=== PATIENT | male | born 1950 | race Caucasian/White ===

== ENCOUNTER 2020-10-26 01:36 | Outpatient (CLI) | payer MEDICARE, BC, SELFPAY ==
[2020-10-26 08:19] LABS: HCT 45.3 % (40.0-50.0); HGB 14.9 g/dL (13.5-17.5); MCH 32.3 pg (27.0-33.0); MCHC 32.9 % (32.0-36.0); MCV 98.3 fL (80-95); MPV 9.4 fL (8.0-11.0); Platelet Count 237 10^3/uL (130-400); RBC 4.61 10^6/uL (4.36-5.78); RDW 11.8 % (11.8-14.1); RDW-SD 42.5 fL; WBC 6.28 10^3/uL (4.4-10.8)
[2020-10-26 09:50] LABS: ALT 35 U/L (16-63); AST 17 U/L (15-37); Albumin 3.6 g/dL (3.4-5.0); Alkaline Phosphatase 81 U/L (46-116); BUN 20 mg/dL (7-18); Bilirubin, Direct 0.09 mg/dL (0.00-0.20); Bilirubin, Total 0.4 mg/dL (0.2-1.0); CREATININE 0.75 mg/dL (0.70-1.30); Calcium 8.6 mg/dL (8.5-10.1); Chloride 104 mmol/L (98-107); Glucose 103 mg/dL (74-106); Potassium 4.5 mmol/L (3.5-5.1); Sodium 141 mmol/L (136-145); Total Protein 6.6 g/dL (6.4-8.2)
[2020-10-26 23:09] LABS: PSA, Screening 2.8 ng/mL (0.0-4.5)
[2020-11-06 11:30] LABS: Misc Referral (UVM) See Comments
== END 2020-10-26 01:56 ==
PROVIDERS: PCP Family Medicine; Visit Provider Family Medicine
DX: E29.1 Testicular hypofunction (principal); N40.0 Benign prostatic hyperplasia without lower urinary tract symptoms; Z12.5 Encounter for screening for malignant neoplasm of prostate
CPT/HCPCS: 36415; 80053; 80076; 84153; 84403; 85027

== ENCOUNTER 2021-02-27 15:16 | Outpatient (CLI) | payer MEDICARE, BC, SELFPAY ==
--- NOTE | 2021-02-27 16:15 | DI.RAD_ITS ---
EXAM: XR ABDOMEN FLAT UPRIGHT CLINICAL HISTORY: constipation k59.00. TECHNIQUE: 2D digital imaging was performed. COMPARISON: No exams were available for comparison FINDINGS: There is abundant fecal material noted throughout the colon. The colon is not overly distended. The re is no obvious fecal rectal impaction. A 2 calcifications are noted over the right kidney which are probably renal calculi. These both amanda ure 3 millimeters. There are no obvious calculi seen along the course of the ureters. Vascular calc ification is noted in left side of the pelvis. Chronic degenerative disc disease in the lumbar spine noted. IMPRESSION: Moderate increased amount of fecal material throughout the colon. No fecal rectal impaction evident. DATA REPOSITORY: RADIATION DOSE DELIVERED:
--- NOTE | 2021-02-27 16:55 | DI.VRAD_ITS ---
PROCEDURE INFORMATION: Exam: XR Abdomen Exam date and time: 02/27/2021 4:47 PM Age: 70 years old Clinical indication: Other: Constipation TECHNIQUE: Imaging protocol: XR of the abdomen. Views: 2 Views. Upright and supine views. COMPARISON: No relevant prior studies available. FINDINGS: Gastrointestinal tract: Normal stool retention. No definite evidence of constipation. Intraperitoneal space: Normal. No free air. Organs: Several small calcifications overlying the right renal shadow which could indicate stones. Bones/joints: Mild dextroscoliosis and degenerative changes in the spine. IMPRESSION: Normal stool retention. No definite evidence of constipation. Mild dextroscoliosis and degenerative changes in the spine. Several small calcifications overlying the right renal shadow which could indicate stones. Dictated and Authenticated by: Yusra Bashir MD. Ordering:DAYANA Childress MD
== END 2021-02-27 15:36 ==
PROVIDERS: PCP Family Medicine; Visit Provider Physician Assistant
DX: K59.00 Constipation, unspecified (principal)
CPT/HCPCS: 74019

== ENCOUNTER 2021-10-17 02:33 | Outpatient (CLI) | payer MEDICARE, BC, SELFPAY ==
[2021-10-17 17:25] LABS: Calculated LDL 145 mg/dL (<100); Cholesterol 236 mg/dL (<200); HDL Cholesterol 65 mg/dL (40-60); Triglyceride 133 mg/dL (<150)
[2021-10-17 23:28] LABS: PSA, Screening 2.9 ng/mL (0.0-4.5)
[2021-10-18 09:44] LABS: Hepatitis C Ab w Rflx HCV PCR Negative (Negative)
== END 2021-10-17 02:34 | disposition home or self-care (01) ==
LOC: LBO 02:33
PROVIDERS: PCP Family Medicine; Visit Provider Family Medicine
DX: Z00.00 Encounter for general adult medical examination without abnormal findings (principal); Z80.42 Family history of malignant neoplasm of prostate; Z12.5 Encounter for screening for malignant neoplasm of prostate; Z11.59 Encounter for screening for other viral diseases
CPT/HCPCS: 36415; 80061; 84153; 86803

== ENCOUNTER 2022-10-10 03:57 | Outpatient (CLI) | payer MEDICARE, BC, SELFPAY ==
[2022-10-10 12:15] LABS: Abs Immature Grans 0.01 10^3/uL (0.0-0.06); Absolute Basophil Count 0.04 10^3/uL (0.0-0.2); Absolute Eosinophil Count 0.11 10^3/uL (0.0-0.7); Absolute Lymphocyte Count 2.25 10^3/uL (1.2-3.4); Absolute Monocyte Count 0.62 10^3/uL (0.1-0.8); Absolute Neutrophil Count 3.03 10^3/uL (1.2-6.7); Basophils % 0.7; Eosinophils % 1.8; HCT 45.4 % (40.0-50.0); HGB 14.9 g/dL (13.5-17.5); Immature Grans % 0.2; Lymphocytes % 37.1; MCH 31.9 pg (27.0-33.0); MCHC 32.8 % (32.0-36.0); MCV 97 fL (80-95); MPV 9.7 fL (8.0-11.0); Monocytes % 10.2; Platelet Count 254 10^3/uL (130-400); RBC 4.67 10^6/uL (4.36-5.78); RDW 12.1 % (11.8-14.1); RDW-SD 43.8 fL; WBC 6.06 10^3/uL (4.4-10.8)
[2022-10-14 09:20] LABS: PSA, Screening 4.5 ng/mL (<=6.5)
[2022-10-15 16:14] LABS: Testosterone, Total 570 ng/dL (240-950)
== END 2022-10-10 03:58 | disposition home or self-care (01) ==
LOC: LBO 03:57
PROVIDERS: PCP Family Medicine; Visit Provider Family Medicine
DX: E29.1 Testicular hypofunction (principal); Z12.5 Encounter for screening for malignant neoplasm of prostate
CPT/HCPCS: 36415; 84153; 84403; 85025

== ENCOUNTER 2022-11-10 09:35 | Emergency (ER) | payer MEDICARE, BC, SELFPAY ==
[2022-11-10 09:40] VITALS: BP 110/71; PULSE 105; RESP 16; TEMP 38.3; O2SAT 96
--- NOTE | 2022-11-10 09:52 | W.ED.GENAD ---
Discharge Plan Disposition Patient Disposition: Home Condition: Stable Discharge Details Clinical Impression: COVID-19 Primary Care Provider: Janette Neville ED Provider: Francisco Jacobo Home Meds and New Rx's Prescriptions: Continued testosterone/dennis cream See Rx Instructions .ROUTE .COMPLEX Qty: 360 1RF Dose Instruction: 0.25 tsp apply to non hairy skin twice daily ; Rx Instructions: 0.25 tsp apply to non hairy skin twice daily Discharge Instructions Instructions: COVID-19 (Coronavirus Disease 2019) (ED) Additional Instructions: Please drink plenty of fluids and allow for plenty of rest. Please take acetaminophen (tylenol) - 650mg every 6 hours by mouth as needed for fever. Please contact your primary care physician to arrange follow-up. Return to the ER immediately for any worsening or new concerning symptoms. Referrals: Janette Neville MD [Primary Care Provider] - Medical Decision Making 72-year-old male with history of hyperlipidemia and obstructive sleep apnea, here with respiratory symptoms including sore throat cough and associated fatigue with fever over the past 3 days. Patient tested positive for COVID at home. Patient is saturating well and in no respiratory distress. He has no shortness of breath or chest pain. Patient requesting treatment with paxlovid. Plan to initiate treatment course here and will provide doses to continue full course. Patient was encouraged to drink plenty of fluid and allow for plenty of rest. Usual customary discharge instructions were reviewed. HPI General Mode of arrival: ambulatory. Date/Time Provider Initiated Documentation: 11/10/22 09:51. Limitations to Documentation: no limitations. Information obtained by: patient. HPI Narrative: 72-year-old male here with chief complaint of COVID-positive. Patient notes he started to have a scratchy throat 3 days ago and then developed cough fatigue and fever. Symptoms are moderate. No modifiers. He denies associated shortness of breath. No chest pain. Patient tested for COVID and was positive at home. Related Data Home Medications Medication Instructions Recorded Confirmed testosterone/dennis See Rx Instructions .Route 05/03/22 11/10/22 .COMPLEX #360 grams Previous Rx's Medication Instructions Recorded testosterone/dennis See Rx Instructions .Route 05/03/22 .COMPLEX #360 grams Allergies Allergy/AdvReac Type Severity Reaction Status Date / Time doxycycline Allergy Unknown HIVES Verified 11/10/22 09:49 codeine Allergy Verified 11/10/22 09:49 General Stated Complaint: RespSymp BRENDON: 3 Review of Systems All systems reviewed & are unremarkable except as noted in HPI and below Constitutional Constitutional: Reports fever(s) Cardiovascular Cardiovascular: Denies chest pain and Denies dyspnea Respiratory Respiratory: Denies dyspnea PFSH All Active Problems Hypogonadism (Acute) managed with topical testosterone Obstructive sleep apnea hypopnea, severe (Acute) managed with bipap previously, now with a dental appliance. 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, right eyelid since childhood Surgical History Status post tonsillectomy Family History Mother Personal history of malignant neoplasm lung Asthma Father , age 88 Personal history of malignant neoplasm skin Dementia Brother Substance abuse Essential hypertension Depression Grandfather Depression Son Asthma Social History Smoking/Tobacco Use Status: Never Second Hand Exposure: No Smoking risk assessment performed?: Yes Alcohol Intake: never Drug use: Never Substance use type: does not use Caregiver/Support person: No Household members: none Housing: house Number of Children: 3 number of grandchildren: 6 Communication Needs: None Education Level: college Details: Economics Do you need help understanding health information?: Rarely current occupation: retired, self employed in construction Pets and animals: No Sexually active: Yes Do you think of yourself as: straight/heterosexual Current gender identity: male What is your relationship status?: How often do you talk on the phone with friends or family?: once per week How often do you get together with friends or relatives?: once per week How often do you attend moravian or methodist services?: 1-3 times per year Do you belong to any clubs or organized social groups?: yes Panel score (0-1 are the most socially isolated patients): 1 What type of physical activity do you participate in: walking and weight lifting Duration: 15-30 minutes/day Frequency: 1-2 times per week Leonie/Scientologist: Caodaism Special leonie needs: No Seatbelt use: always Helmet use: Yes Helmet use: sometimes Drive intox or ride w/intox courtesy bus driver: No Do you feel safe at home: Yes Do you feel safe in your relationship?: Yes Victim of physical abuse: No Victim of emotional abuse: No Victim of sexual abuse: No Would you like helpful sources: No Additional Social history: Enjoys playing golf, skiing, guitar, reading, sports on TV. Exam Const General: cooperative and no acute distress HENMT Mouth: moist mucous membranes Eyes Conjunctivae: normal conjunctivae Sclera: normal sclerae Neck Neck: trachea midline Resp Auscultation: clear to auscultation bilaterally, no rales, no rhonchi and no wheezes Cardio Rate: regular rate and not tachycardic Rhythm: regular rhythm GI Palpation: soft, not firm, no guarding, not rigid and nontender Neuro General: patient alert, patient awake, patient oriented x3 and tone normal Course Vital Signs Vital signs: Vital Signs Temperature 38.3 C H 11/10/22 09:40 Pulse 105 H 11/10/22 09:40 Respiratory Rate 16 11/10/22 09:40 Blood Pressure 110/71 11/10/22 09:40 Pulse Oximetry 96 11/10/22 09:40 Temperature 38.3 C H 11/10/22 09:40 Temperature Source Skin 11/10/22 09:40 Pulse 105 H 11/10/22 09:40 Respiratory Rate 16 11/10/22 09:40 Respiratory Effort 11/10/22 09:51 Respiratory Depth Normal 11/10/22 09:51 Blood Pressure 110/71 11/10/22 09:40 Blood Pressure Position Sitting 11/10/22 09:40 Pulse Oximetry 96 11/10/22 09:40 Oxygen Delivery Method Room Air 11/10/22 09:40 Oxygen Flow Rate 0 11/10/22 09:40 Pain Level 5 11/10/22 09:40 Comment 11/10/22 09:40
[2022-11-10 10:09] VITALS: TEMP 38.3
[2022-11-10] MEDS: Acetaminophen 325 MG TAB 650 MG PO (10:09)
[2022-11-10 10:28] VITALS: PULSE 103; RESP 16; TEMP 38.6; O2SAT 96
== END 2022-11-10 10:40 | disposition home or self-care (01) ==
PROVIDERS: Emergency Provider Student in an Organized Health Care Education/Training Program; PCP Family Medicine
DX: U07.1 COVID-19 (principal)
CPT/HCPCS: 80053; 87040; 99283; 85025

== ENCOUNTER 2023-10-22 04:22 | Outpatient (CLI) | payer MEDICARE, BC, SELFPAY ==
[2023-10-22 08:48] LABS: Abs Immature Grans 0.01 10^3/uL (0.0-0.06); Absolute Basophil Count 0.04 10^3/uL (0.0-0.2); Absolute Eosinophil Count 0.19 10^3/uL (0.0-0.7); Absolute Lymphocyte Count 2.27 10^3/uL (1.2-3.4); Absolute Monocyte Count 0.67 10^3/uL (0.1-0.8); Absolute Neutrophil Count 3.52 10^3/uL (1.2-6.7); Basophils % 0.6; Eosinophils % 2.8; HCT 45.9 % (40.0-50.0); HGB 15.4 g/dL (13.5-17.5); Immature Grans % 0.1; Lymphocytes % 33.9; MCH 32.3 pg (27.0-33.0); MCHC 33.6 % (32.0-36.0); MCV 96 fL (80-95); MPV 9.3 fL (8.0-11.0); Neutrophils % 52.6; Platelet Count 229 10^3/uL (130-400); RBC 4.77 10^6/uL (4.36-5.78)
[2023-10-22 09:16] LABS: Calculated LDL 168 mg/dL (<100); Cholesterol 250 mg/dL (<200); HDL Cholesterol 64 mg/dL (40-60); Triglyceride 90 mg/dL (<150)
== END 2023-10-22 04:23 | disposition home or self-care (01) ==
LOC: LBO 04:22
PROVIDERS: PCP Family Medicine; Visit Provider Family Medicine
DX: Z12.5 Encounter for screening for malignant neoplasm of prostate (principal); Z51.81 Encounter for therapeutic drug level monitoring; E78.2 Mixed hyperlipidemia; Z13.6 Encounter for screening for cardiovascular disorders
CPT/HCPCS: 36415; 80061; 84153; 85025